=== PATIENT | male | born 1980 | race Caucasian/White ===

== ENCOUNTER 2021-08-17 16:24 | Emergency (ER) | payer OTHER, SELFPAY ==
[2021-08-17 16:35] VITALS: BP 143/89; PULSE 90; RESP 20; TEMP 36.5; O2SAT 99
--- NOTE | 2021-08-17 17:14 | ED.SKABFB ---
HPI - Skin/Abscess/Foreign Bdy General Chief complaint: Skin/Abscess/Foreign Body Stated complaint: right side of face swollen Time Seen by Provider: 08/17/21 17:10 Source: patient and RN notes reviewed Mode of arrival: ambulatory Limitations: no limitations History of Present Illness HPI narrative: 41-year-old male presents with concern for swelling, pain, redness, tenderness to the right side of his face. Reports he had 2 pimple areas over the last week and yesterday noticed that became larger, more red and more tender. He denies any intervention. He denies headache, trouble swallowing, nasal congestion, fever, bodies, chills, sweats complaint: other (Swelling) Related Data Allergies Allergy/AdvReac Type Severity Reaction Status Date / Time No Known Allergies Allergy Verified 08/17/21 16:39 Review of Systems Review of Systems: CONSTITUTIONAL: Denies malaise, chills, sweats, or fever. EYES: Denies redness, or discharge. ENT: Denies rhinorrhea, congestion, swollen lips, swollen tongue CARDIOVASCULAR: Denies chest pain, palpitations, or edema. RESPIRATORY: Denies cough or dyspnea. GASTROINTESTINAL: Denies abdominal pain, nausea, vomiting SKIN: Reports swelling, redness, tenderness to the right side of his face MUSCULOSKELETAL: Denies joint pain or myalgia. NEUROLOGIC: Denies headache. All systems reviewed & are unremarkable except as noted in HPI and below PMFSH Comments At time of signature, agree with nursing past medical, surgical, social and family history. There is no relevant family history pertinent to the presenting complaint Exam Narrative: GENERAL: Well-appearing, well-nourished, and in no acute distress. HEAD: Normocephalic, atraumatic. EYES: PERRLA, conjunctivae clear, and EOMI. ENT: Mucous membranes moist. Nares clear. Oropharynx without edema, erythema or lesions. NECK: Supple. No lymphadenopathy CHEST: Clear to auscultation. No respiratory distress. HEART: Regular rate and rhythm. SKIN: Warm, dry. 3 cm x 2 cm area of induration, erythema, warmth, tenderness without fluctuation noted right of the nose to the cheek with 2 central scabs NEURO: Alert and oriented x3. PSYCH: Normal mood and affect Course Course Emergency Course: Patient is aware of diagnosis, understands and agrees to treatment plan. Anticipatory guidance given. Patient agrees to follow-up as directed and is aware of reasons to seek care at the emergency department. Portions of this record may have been created with voice recognition software Level of Care: Express Care Visit Vital Signs Vital signs: Vital Signs Temperature 97.7 F 08/17/21 16:35 Pulse Rate 90 08/17/21 16:35 Respiratory Rate 20 08/17/21 16:35 Blood Pressure 143/89 H 08/17/21 16:35 Pulse Oximetry 99 08/17/21 16:35 Temperature 97.7 F 08/17/21 16:35 Pulse Rate 90 08/17/21 16:35 Respiratory Rate 20 08/17/21 16:35 Blood Pressure 143/89 H 08/17/21 16:35 Pulse Oximetry 99 08/17/21 16:35 Reviewed. MDM - Skin/Abscess/Foreign Bdy MDM Narrative Medical decision making narrative: Patient presentation of erythema, tenderness, warmth, induration is consistent with cellulitis. No fluctuation, no drainage, no pain out of proportion. Vital signs normal. Pain manageable with OTC medications. Critical Care Time Critical Care Time Critical Care Time: No Discharge Plan Discharge Clinical Impression: Cellulitis Qualifiers: Site of cellulitis: face Qualified Code(s): L03.211 - Cellulitis of face Patient Disposition: Home, Self-Care Condition: Stable Instructions: Antibiotic Form, Cellulitis (ED) Additional Instructions: Please follow up with your Primary Care Doctor within 48-72 hours - call for an appointment. Apply moist heat 3-4 times daily for 10-15 minutes. Take Motrin 600mg every 8 hours with food for pain. Please take Antibiotics as directed. If you experience any worsening redness, swelling, streaking (red lines), fever or
== END 2021-08-17 17:32 | disposition home or self-care (01) ==
PROVIDERS: Emergency Provider Nurse Practitioner
DX: L03.211 Cellulitis of face (principal)
CPT/HCPCS: 99213; G0463